=== PATIENT | male | born 1970 | race Caucasian/White ===

== ENCOUNTER 2018-02-01 11:28 | Outpatient (RCR) | payer BC ==
[~2018-02-01] VITALS: Ht 185.4 cm; Wt 120.2 kg
== END 2018-02-13 | disposition home or self-care (01) ==
LOC: WCC 11:28
DX: L97.812 Non-pressure chronic ulcer of other part of right lower leg with fat layer exposed (principal); I87.021 Postthrombotic syndrome with inflammation of right lower extremity; I10 Essential (primary) hypertension; Z86.718 Personal history of other venous thrombosis and embolism; Z79.01 Long term (current) use of anticoagulants
CPT/HCPCS: 11042; G0463

== ENCOUNTER 2018-02-15 07:43 | Outpatient (RCR) | payer BC | END 2018-03-16 | disposition home or self-care (01) | LOC: WCC 07:43 | DX: L97.812 Non-pressure chronic ulcer of other part of right lower leg with fat layer exposed (principal); I87.021 Postthrombotic syndrome with inflammation of right lower extremity; I10 Essential (primary) hypertension; Z86.718 Personal history of other venous thrombosis and embolism; Z79.01 Long term (current) use of anticoagulants | CPT/HCPCS: 11042 ==